=== PATIENT | female | born 1945 | race Two or more races ===

== ENCOUNTER → 2018-11-15 | Outpatient (CLI) | payer MEDICARE, OTHER, MEDICAID | END | disposition home or self-care (01) | LOC: HKI 14:01 | DX: M16.11 Unilateral primary osteoarthritis, right hip (principal); I10 Essential (primary) hypertension; E03.9 Hypothyroidism, unspecified | CPT/HCPCS: G0463 ==

== ENCOUNTER → 2019-02-18 | Outpatient (CLI) | payer MEDICARE, OTHER | END | disposition home or self-care (01) | LOC: HKI 14:00 | DX: M16.12 Unilateral primary osteoarthritis, left hip (principal) | CPT/HCPCS: 73502 ==

== ENCOUNTER 2019-02-26 05:25 | Inpatient (IN) | payer MEDICARE, OTHER ==
[2019-02-25] MEDS: TRANEXAMIC ACID 1GM/100ML(PMX) 100 ML PRE-OP IVPB (07:30)
[2019-02-26] MEDS ORDERED: SEVOFLURANE 15 MIN (06:20)
[2019-02-26] MEDS: VANCOMYCIN 1 GM/NS (PMX) 250 ML FOR WT<80 KG IVPB (06:25)
[2019-02-26] MEDS: DEXAMETHASONE 4 MG/ML 1 ML INJ IV (06:26)
[2019-02-26] MEDS: LANSOPRAZOLE 30 MG CAP PO (06:26)
[2019-02-26] MEDS: ONDANSETRON 4 MG INJ IV (06:26)
[2019-02-26] MEDS: CELECOXIB 200 MG CAP PO (06:26)
[2019-02-26] MEDS: ACETAMINOPHEN 500 MG TAB PO ×3 (06:26→22:00)
[2019-02-26] MEDS ORDERED: CEFAZOLIN 1 GM INJ (06:30)
[2019-02-26] MEDS ORDERED: ONDANSETRON 4 MG INJ (06:30)
[2019-02-26] MEDS ORDERED: morphine SULFATE/PF (10 MG/10 ML) INJ (06:30)
[2019-02-26] MEDS ORDERED: FENTAnyl 50 MCG/ML VIAL (06:30)
[2019-02-26] MEDS ORDERED: LIDOCAINE 2% (SDV) 5 ML INJ (06:30)
[2019-02-26] MEDS ORDERED: ETOMIDATE 20 MG INJ (06:30)
[2019-02-26] MEDS ORDERED: MIDAZOLAM 1 MG/ML 2 ML INJ (06:30)
[2019-02-26] MEDS: CLINDAMYCIN 900 MG/D5W (PMX) 50 ML IVPB (07:00)
[2019-02-26] MEDS ORDERED: TRANEXAMIC ACID 1GM/100ML(PMX) 200 ML (07:02)
[2019-02-26] MEDS: TRANEXAMIC ACID 1GM/100ML(PMX) 100 ML AT CLOSING IVPB (11:00)
[2019-02-26] MEDS: VANCOMYCIN 1 GM INJ (11:19)
[2019-02-26 11:21] LABS: IMMEDIATE SPIN CROSSMATCH 1 3
[2019-02-26] MEDS ORDERED: NA PHOSPHATE/BIPHOS 133 ML ENEMA PR (12:30)
[2019-02-26] MEDS ORDERED: MEPERIDINE 25 MG INJ IV (12:30)
[2019-02-26] MEDS ORDERED: BISACODYL 10 MG SUPP PR (12:30)
[2019-02-26] MEDS ORDERED: oxyCODONE 5 MG TAB PO (12:30)
[2019-02-26] MEDS ORDERED: FENTAnyl 50 MCG/ML VIAL IV (12:30)
[2019-02-26] MEDS ORDERED: DIPHENHYDRAMINE 50 MG INJ IV ×2 (12:30)
[2019-02-26] MEDS ORDERED: NALOXONE (0.4 MG/ML) INJ IV ×2 (12:30→13:00)
[2019-02-26] MEDS ORDERED: SENNA/DOCUSATE NA (8.6MG/50MG) TAB PO (12:30)
[2019-02-26] MEDS ORDERED: NACL 0.9% 3 ML SYG IV (12:30)
[2019-02-26] MEDS ORDERED: ONDANSETRON 4 MG INJ IV (12:30)
[2019-02-26] MEDS ORDERED: HYDROmorphONE 1 MG/5 ML IV SYRINGE IV ×2 (12:30)
[2019-02-26] MEDS ORDERED: MAGNESIUM HYDROXIDE 30ML CUP PO (12:30)
[2019-02-26] MEDS: LACTATED RINGER'S 1,000 ML IV* (13:06)
[2019-02-26] MEDS: DOCUSATE SODIUM 100 MG CAP PO (13:09)
[2019-02-26] MEDS: METOCLOPRAMIDE 10 MG INJ IV (13:27)
[2019-02-26 13:38] LABS: WHITE BLOOD COUNT 25.1 10^3/ul (4.8-10.8)
[2019-02-26 13:38] LABS: ABNORMAL IP MESSAGE 1; HEMATOCRIT 39.6 % (37.0-47.0); HEMOGLOBIN 13.1 g/dl (12.0-16.0); MEAN CORPUSCULAR HEMOGLOBIN 29.7 pg (29.0-33.0); MEAN CORPUSCULAR HGB CONC 33.1 g/dl (32.0-37.0); MEAN CORPUSCULAR VOLUME 89.8 fl (82.0-101.0); MEAN PLATELET VOLUME 10.8 fl (7.4-10.4); PLATELET COUNT 248 10^3/UL (140-415); RED BLOOD COUNT 4.41 10^6/ul (4.20-5.40)
[2019-02-26 13:45] LABS: ADD MAN DIFF? YES; HOLD TRANSMISSIONS 1; POSITIVE DIFF @See below
[2019-02-26 13:55] LABS: ANION GAP 10 (5-13); CALCIUM 8.7 mg/dl (8.4-10.2); CARBON DIOXIDE 24 mmol/L (21-31); CHLORIDE 106 mmol/L (97-110); CREATININE 0.78 mg/dl (0.44-1.00); GLUCOSE 227 mg/dl (70-220); SODIUM 140 mmol/L (135-144)
[2019-02-26 13:58] LABS: BLOOD UREA NITROGEN 22 mg/dl (7-20)
[2019-02-26 14:01] LABS: POTASSIUM 2.8 mmol/L (3.5-5.1)
[2019-02-26 14:15] LABS: BAND NEUTROPHILS % (M) 26 % (0-4); SEGMENTED NEUTROPHILS (M) % 71 % (39-77)
[2019-02-26 14:16] LABS: ANISOCYTOSIS 1+ (0-0); BAND NEUTROPHILS #M 6.5 10^3/ul (0.0-0.6); LYMPHOCYTES #M 0.7 10^3/ul (0.8-2.9); LYMPHOCYTES % (M) 3 % (15-51); MICROCYTOSIS 1+ (0-0); PLATELET ESTIMATE NORMAL; POIKILOCYTOSIS 1+ (0-0); POLYCHROMASIA 1+ (0-0); SEG NEUT #M 19.5 10^3/ul (1.6-7.5); SMUDGE%M 3 % (0-0)
[2019-02-26] MEDS: POTASSIUM CHLORIDE (SR) 10 MEQ TAB PO (14:36)
[2019-02-26] MEDS: CEFAZOLIN 2 GM/50 ML (PMX) 50 ML IVPB ×2 (15:58→23:52)
[2019-02-26 16:08] LABS: ADD MAN DIFF? NO
[2019-02-26 16:10] LABS: ABNORMAL IP MESSAGE 1; BASOPHILS % 0.3 % (0.0-2.0); HEMATOCRIT 31.1 % (37.0-47.0); HEMOGLOBIN 10.2 g/dl (12.0-16.0); LYMPHOCYTES # 0.4 10^3/ul (0.8-2.9); LYMPHOCYTES % 2.8 % (15.0-51.0); MEAN CORPUSCULAR HEMOGLOBIN 29.9 pg (29.0-33.0); MEAN CORPUSCULAR HGB CONC 32.8 g/dl (32.0-37.0); MEAN CORPUSCULAR VOLUME 91.2 fl (82.0-101.0); MEAN PLATELET VOLUME 11.3 fl (7.4-10.4); MONOCYTE # 0.6 10^3/ul (0.3-0.9); MONOCYTES % 3.9 % (0.0-11.0); NEUTROPHILS % 92.4 % (39.0-77.0); PLATELET COUNT 134 10^3/UL (140-415); RED BLOOD COUNT 3.41 10^6/ul (4.20-5.40)
[2019-02-26 16:10] LABS: WHITE BLOOD COUNT 14.1 10^3/ul (4.8-10.8)
[2019-02-26 16:17] LABS: HOLD TRANSMISSIONS 1; POSITIVE DIFF @See below
[2019-02-26 16:41] LABS: POTASSIUM 2.6 mmol/L (3.5-5.1)
[2019-02-26] MEDS: POTASSIUM CHLORIDE (SR) 20 MEQ TAB PO (17:27)
[2019-02-26] MEDS: SOD CHLORIDE 0.9% 500 ML IV (17:29)
[2019-02-26] MEDS: ALBUMIN HUMAN 5% 250 ML IV ×2 (18:00→20:34)
[2019-02-26 20:49] LABS: POTASSIUM 3.3 mmol/L (3.5-5.1)
[2019-02-26 22:47] LABS: ADD MAN DIFF? NO
[2019-02-26] MEDS: LACTATED RINGER'S 500 ML IV ×2 (22:47→23:43)
[2019-02-26] MEDS: LACTATED RINGER'S 1,000 ML IV (22:49)
[2019-02-26 22:50] LABS: ABNORMAL IP MESSAGE 1; BASOPHILS % 0.1 % (0.0-2.0); HEMOGLOBIN 8.2 g/dl (12.0-16.0); LYMPHOCYTES # 0.4 10^3/ul (0.8-2.9); LYMPHOCYTES % 3.2 % (15.0-51.0); MEAN CORPUSCULAR HEMOGLOBIN 29.3 pg (29.0-33.0); MEAN CORPUSCULAR HGB CONC 32.8 g/dl (32.0-37.0); MEAN CORPUSCULAR VOLUME 89.3 fl (82.0-101.0); MEAN PLATELET VOLUME 10.9 fl (7.4-10.4); MONOCYTE # 0.4 10^3/ul (0.3-0.9); MONOCYTES % 3.8 % (0.0-11.0); NEUTROPHIL # 10.4 10^3/ul (1.6-7.5); NEUTROPHILS % 92.5 % (39.0-77.0); PLATELET COUNT 132 10^3/UL (140-415); RED CELL DISTRIBUTION WIDTH 13.2 % (11.5-14.5)
[2019-02-26 22:50] LABS: WHITE BLOOD COUNT 11.2 10^3/ul (4.8-10.8)
[2019-02-26 22:51] LABS: POSITIVE DIFF @See below
[2019-02-26] MEDS: POTASSIUM CHLORIDE 20 MEQ POWDER FOR ORAL SOLN PO (22:53)
[2019-02-27] MEDS: GABAPENTIN 300 MG CAP PO ×2 (00:05→22:14)
[2019-02-27] MEDS: SOD CHLORIDE 0.9% 250 ML IV* (00:27)
[2019-02-27] MEDS: LACTATED RINGER'S 1,000 ML IV ×2 (02:30→15:00)
[2019-02-27] MEDS: DOPamine-D5W 1.6 MG/ML 250 ML IV (04:03)
[2019-02-27] MEDS: ACETAMINOPHEN 500 MG TAB PO ×3 (05:48→22:14)
[2019-02-27] MEDS: LEVOTHYROXINE 125 MCG TAB PO (06:04)
[2019-02-27] MEDS: DEXAMETHASONE 10 MG/ML 1 ML INJ IV (06:04)
[2019-02-27] MEDS: PANTOPRAZOLE (EC) 40 MG TAB PO (06:04)
[2019-02-27] MEDS: CEFAZOLIN 2 GM/50 ML (PMX) 50 ML IVPB (06:05)
[2019-02-27 07:50] LABS: ADD MAN DIFF? NO
[2019-02-27 07:55] LABS: ABNORMAL IP MESSAGE 1; BASOPHILS % 0.2 % (0.0-2.0); EOSINOPHILS % 0.4 % (0.0-7.0); HEMATOCRIT 30.7 % (37.0-47.0); HEMOGLOBIN 10.3 g/dl (12.0-16.0); LYMPHOCYTES # 0.6 10^3/ul (0.8-2.9); LYMPHOCYTES % 5.2 % (15.0-51.0); MEAN CORPUSCULAR HEMOGLOBIN 29.9 pg (29.0-33.0); MEAN CORPUSCULAR HGB CONC 33.6 g/dl (32.0-37.0); MEAN PLATELET VOLUME 11.3 fl (7.4-10.4); MONOCYTE # 0.4 10^3/ul (0.3-0.9); MONOCYTES % 3.2 % (0.0-11.0); NEUTROPHIL # 9.8 10^3/ul (1.6-7.5); NEUTROPHILS % 90.4 % (39.0-77.0); PLATELET COUNT 135 10^3/UL (140-415); RED BLOOD COUNT 3.45 10^6/ul (4.20-5.40); RED CELL DISTRIBUTION WIDTH 13.5 % (11.5-14.5)
[2019-02-27 07:55] LABS: WHITE BLOOD COUNT 10.8 10^3/ul (4.8-10.8)
[2019-02-27 08:04] LABS: POSITIVE DIFF @See below
[2019-02-27 08:11] LABS: ANION GAP 7 (5-13); BLOOD UREA NITROGEN 18 mg/dl (7-20); CALCIUM 8.4 mg/dl (8.4-10.2); CARBON DIOXIDE 24 mmol/L (21-31); CHLORIDE 110 mmol/L (97-110); CREATININE 0.68 mg/dl (0.44-1.00); GLUCOSE 101 mg/dl (70-220); POTASSIUM 4.7 mmol/L (3.5-5.1); SODIUM 141 mmol/L (135-144)
[2019-02-27 08:13] LABS: INR 1.03; PROTIME 13.6 Sec (11.9-14.9); PT RATIO 1.1
[2019-02-27] MEDS: ASPIRIN (EC) 81 MG TAB PO ×2 (08:43→22:14)
[2019-02-27] MEDS: DOCUSATE SODIUM 100 MG CAP PO ×2 (08:43→22:14)
[2019-02-27] MEDS: POTASSIUM CHLORIDE 20 MEQ POWDER FOR ORAL SOLN PO (08:44)
[2019-02-27] MEDS ORDERED: POTASSIUM CHLORIDE (SR) 8 MEQ CAP PO (09:00)
[2019-02-27] MEDS ORDERED: ATENOLOL 50 MG TAB PO (09:00)
[2019-02-27] MEDS: OXYBUTYNIN (XL) 5 MG TAB PO (09:42)
[2019-02-27] MEDS ORDERED: ONDANSETRON 4 MG INJ IV (12:30)
[2019-02-27 18:26] LABS: ADD MAN DIFF? NO
[2019-02-27 18:30] LABS: WHITE BLOOD COUNT 9.5 10^3/ul (4.8-10.8)
[2019-02-27 18:30] LABS: ABNORMAL IP MESSAGE 1; BASOPHILS % 0.1 % (0.0-2.0); HEMATOCRIT 26.7 % (37.0-47.0); HEMOGLOBIN 9.1 g/dl (12.0-16.0); LYMPHOCYTES # 0.6 10^3/ul (0.8-2.9); MEAN CORPUSCULAR HEMOGLOBIN 29.6 pg (29.0-33.0); MEAN CORPUSCULAR HGB CONC 34.1 g/dl (32.0-37.0); MEAN PLATELET VOLUME 11.5 fl (7.4-10.4); MONOCYTE # 0.3 10^3/ul (0.3-0.9); MONOCYTES % 3.3 % (0.0-11.0); NEUTROPHIL # 8.6 10^3/ul (1.6-7.5); NEUTROPHILS % 90.1 % (39.0-77.0); PLATELET COUNT 127 10^3/UL (140-415); RED BLOOD COUNT 3.07 10^6/ul (4.20-5.40); RED CELL DISTRIBUTION WIDTH 13.9 % (11.5-14.5)
[2019-02-27 18:51] LABS: POSITIVE DIFF @See below
[2019-02-28] MEDS: LEVOTHYROXINE 125 MCG TAB PO (06:20)
[2019-02-28] MEDS: PANTOPRAZOLE (EC) 40 MG TAB PO (06:20)
[2019-02-28] MEDS: ACETAMINOPHEN 500 MG TAB PO ×3 (06:20→21:30)
[2019-02-28] MEDS: BETHANECHOL 25 MG TAB PO (06:47)
[2019-02-28 08:21] LABS: ADD MAN DIFF? NO
[2019-02-28 08:29] LABS: BASOPHILS % 0.3 % (0.0-2.0); EOSINOPHILS # 0.1 10^3/ul (0.0-0.5); EOSINOPHILS % 1.3 % (0.0-7.0); HEMATOCRIT 24.9 % (37.0-47.0); HEMOGLOBIN 8.3 g/dl (12.0-16.0); LYMPHOCYTES # 1.4 10^3/ul (0.8-2.9); LYMPHOCYTES % 19.8 % (15.0-51.0); MEAN CORPUSCULAR HEMOGLOBIN 30.1 pg (29.0-33.0); MEAN CORPUSCULAR HGB CONC 33.3 g/dl (32.0-37.0); MEAN CORPUSCULAR VOLUME 90.2 fl (82.0-101.0); MEAN PLATELET VOLUME 12.1 fl (7.4-10.4); MONOCYTE # 0.3 10^3/ul (0.3-0.9); MONOCYTES % 4.2 % (0.0-11.0); NEUTROPHIL # 5.1 10^3/ul (1.6-7.5); PLATELET COUNT 122 10^3/UL (140-415); RED BLOOD COUNT 2.76 10^6/ul (4.20-5.40)
[2019-02-28 08:29] LABS: WHITE BLOOD COUNT 6.9 10^3/ul (4.8-10.8)
[2019-02-28 08:32] LABS: ADD UMIC YES; UR ASCORBIC ACID NEGATIVE (NEGATIVE); UR BACTERIA FEW /HPF (NONE SEEN); UR BILIRUBIN (Dip) NEGATIVE (NEGATIVE); UR BLOOD (Dip) NEGATIVE (NEGATIVE); UR CLARITY CLEAR (CLEAR); UR COLOR STRAW (YELLOW); UR GLUCOSE (Dip) NEGATIVE (NEGATIVE); UR KETONES (Dip) NEGATIVE (NEGATIVE); UR LEUKOCYTE ESTERASE (Dip) TRACE Leu/ul (NEGATIVE); UR NITRITE (Dip) NEGATIVE (NEGATIVE); UR RBC 0 /HPF (0-5); UR SPECIFIC GRAVITY (Dip) 1.005 (1.003-1.030); UR SQUAMOUS EPITHELIAL CELL FEW /HPF (FEW); UR TOTAL PROTEIN (Dip) NEGATIVE (NEGATIVE); UR UROBILINOGEN (Dip) NEGATIVE (NEGATIVE); UR WBC 2 /HPF (0-5)
[2019-02-28 08:45] LABS: INR 1.03; PROTIME 13.6 Sec (11.9-14.9); PT RATIO 1.1
[2019-02-28 08:51] LABS: ANION GAP 4 (5-13); BLOOD UREA NITROGEN 14 mg/dl (7-20); CALCIUM 8.4 mg/dl (8.4-10.2); CARBON DIOXIDE 26 mmol/L (21-31); CHLORIDE 110 mmol/L (97-110); CREATININE 0.73 mg/dl (0.44-1.00); GLUCOSE 86 mg/dl (70-220); POTASSIUM 4.1 mmol/L (3.5-5.1); SODIUM 140 mmol/L (135-144)
[2019-02-28] MEDS: TRANEXAMIC ACID 1GM/100ML(PMX) 100 ML IVPB ×2 (09:00→14:28)
[2019-02-28] MEDS: POTASSIUM CHLORIDE 20 MEQ POWDER FOR ORAL SOLN PO (09:29)
[2019-02-28] MEDS: OXYBUTYNIN (XL) 5 MG TAB PO (09:29)
[2019-02-28] MEDS: DOCUSATE SODIUM 100 MG CAP PO ×2 (09:29→21:28)
[2019-02-28] MEDS: ASPIRIN (EC) 81 MG TAB PO ×2 (09:29→21:28)
[2019-02-28] MEDS: oxyCODONE 5 MG TAB PO ×3 (09:35→23:17)
[2019-02-28 18:35] LABS: IRON 24 ug/dl (35-150)
[2019-02-28 18:44] LABS: % IRON SATURATION 14 % SAT (22-52); TOTAL IRON BINDING CAPACITY 166 ug/dl (241-421)
[2019-02-28] MEDS: HYDROmorphONE 1 MG/ML SYG IV (19:57)
[2019-02-28] MEDS: GABAPENTIN 300 MG CAP PO (21:28)
[2019-02-28 22:09] LABS: TROPONIN-I 0.022 ng/ml (0.000-0.120)
[2019-02-28] MEDS: BALSAM PERU/CASTOR OIL 60 GM TUBE TOP (22:30)
[2019-03-01] MEDS: LEVOTHYROXINE 125 MCG TAB PO (06:08)
[2019-03-01] MEDS: ACETAMINOPHEN 500 MG TAB PO ×3 (06:08→21:08)
[2019-03-01] MEDS: PANTOPRAZOLE (EC) 40 MG TAB PO (06:08)
[2019-03-01 07:14] LABS: ADD MAN DIFF? NO
[2019-03-01 07:24] LABS: BASOPHILS % 0.7 % (0.0-2.0); EOSINOPHILS # 0.2 10^3/ul (0.0-0.5); EOSINOPHILS % 3.9 % (0.0-7.0); HEMOGLOBIN 8.1 g/dl (12.0-16.0); LYMPHOCYTES # 1.2 10^3/ul (0.8-2.9); LYMPHOCYTES % 21.6 % (15.0-51.0); MEAN CORPUSCULAR HEMOGLOBIN 29.6 pg (29.0-33.0); MEAN CORPUSCULAR HGB CONC 32.4 g/dl (32.0-37.0); MEAN CORPUSCULAR VOLUME 91.2 fl (82.0-101.0); MEAN PLATELET VOLUME 11.9 fl (7.4-10.4); MONOCYTE # 0.2 10^3/ul (0.3-0.9); MONOCYTES % 3.9 % (0.0-11.0); NEUTROPHIL # 3.9 10^3/ul (1.6-7.5); NEUTROPHILS % 69.2 % (39.0-77.0); PLATELET COUNT 120 10^3/UL (140-415); RED BLOOD COUNT 2.74 10^6/ul (4.20-5.40); RED CELL DISTRIBUTION WIDTH 14.2 % (11.5-14.5)
[2019-03-01 07:24] LABS: WHITE BLOOD COUNT 5.7 10^3/ul (4.8-10.8)
[2019-03-01 07:44] LABS: INR 1.01; PROTIME 13.4 Sec (11.9-14.9)
[2019-03-01 07:53] LABS: ANION GAP 1 (5-13); BLOOD UREA NITROGEN 15 mg/dl (7-20); CALCIUM 8.5 mg/dl (8.4-10.2); CARBON DIOXIDE 29 mmol/L (21-31); CHLORIDE 109 mmol/L (97-110); CREATININE 0.74 mg/dl (0.44-1.00); GLUCOSE 83 mg/dl (70-220); POTASSIUM 4.3 mmol/L (3.5-5.1); SODIUM 139 mmol/L (135-144)
[2019-03-01 07:54] LABS: TROPONIN-I 0.015 ng/ml (0.000-0.120)
[2019-03-01] MEDS: ASPIRIN (EC) 81 MG TAB PO ×2 (09:48→21:09)
[2019-03-01] MEDS: POTASSIUM CHLORIDE 20 MEQ POWDER FOR ORAL SOLN PO (09:48)
[2019-03-01] MEDS: BALSAM PERU/CASTOR OIL 60 GM TUBE TOP ×2 (09:48→21:09)
[2019-03-01] MEDS: DOCUSATE SODIUM 100 MG CAP PO ×2 (09:48→21:08)
[2019-03-01] MEDS: OXYBUTYNIN (XL) 5 MG TAB PO (09:49)
[2019-03-01] MEDS: oxyCODONE 5 MG TAB PO (11:19)
[2019-03-01] MEDS: HYDROmorphONE 1 MG/ML SYG IV (11:27)
[2019-03-01] MEDS ORDERED: DIAZEPAM 2 MG TAB PO (15:30)
[2019-03-01] MEDS: GABAPENTIN 300 MG CAP PO (21:08)
== END 2019-03-01 21:30 | DRG 470 ==
LOC: REC 05:25 → ICU 21:50 → TEL 02-27 21:02
PROC: 0SR904A Replacement of Right Hip Joint with Ceramic on Polyethylene Synthetic Substitute, Uncemented, Open Approach (ICD-10-PCS; principal; 2019-02-26 07:30)
PROC: 30233N1 Transfusion of Nonautologous Red Blood Cells into Peripheral Vein, Percutaneous Approach (ICD-10-PCS; 2019-02-26 07:30)
DX: M16.11 Unilateral primary osteoarthritis, right hip (principal); D62 Acute posthemorrhagic anemia; E66.9 Obesity, unspecified; Z68.32 Body mass index [BMI] 32.0-32.9, adult; I95.9 Hypotension, unspecified; E03.9 Hypothyroidism, unspecified; M19.90 Unspecified osteoarthritis, unspecified site; Z79.82 Long term (current) use of aspirin
CPT/HCPCS: 36430; 72170; 73500; 73530; 80048; 81001; 83540; 84132; 84484; 85025; 85610; 86850; 86900; 86901; 86920; 87081; 87086; 88304; 93005; 97110; 97116; 97161; 97165; 97530; 97535

== ENCOUNTER → 2019-03-20 | Outpatient (CLI) | payer MEDICARE, OTHER | END | disposition home or self-care (01) | LOC: HKI 10:34 | DX: Z47.1 Aftercare following joint replacement surgery (principal); Z96.641 Presence of right artificial hip joint ==